=== PATIENT | female | born 1980 | race Caucasian/White ===

== ENCOUNTER 2017-02-07 12:20 | Emergency (ER) | payer BC ==
[~2017-02-07] VITALS: Ht 167.6 cm; Wt 89.8 kg
[~2017-02-07 12:20] MED LIST: CPROT OTR
[2017-02-07 12:34] VITALS: TEMP 36.7; Ht 167.6 cm; Wt 89.8 kg
[2017-02-07] MEDS ORDERED: B-COTAB53 PO (13:56)
[2017-02-07] MEDS ORDERED: FERR1TAB13 PO (13:56)
[2017-02-07] MEDS ORDERED: LISI-787 PO (13:56)
[2017-02-07] MEDS ORDERED: MAGN400T6 PO (13:56)
[2017-02-07] MEDS ORDERED: MULT-506 PO (13:56)
[2017-02-07 14:07] LABS: URINE APPEARANCE CLEAR (CLEAR); URINE BILIRUBIN NEG (NEG); URINE COLOR YELLOW; URINE EPITHELIAL CELL AUTO 0-5 /lpf (0-5); URINE NITRITE NEG (NEG); UROBILINOGEN NEG (NEG); ZZUR CULT IF INDIC CLEAN CATCH NO
[2017-02-07 14:10] LABS: MANUAL MICROSCOPIC REQUIRED? NO; REVIEW REQ? NO
[2017-02-07] MEDS ORDERED: OPTIRAY 320 IV PRN ×2 (14:15→15:30)
[2017-02-07 14:21] LABS: BASO % 0.2 %; BASO ABS # 0.01 K/uL (0-0.2); COMPLETE YES; EOS % 0.6 %; HEMATOCRIT 40.4 % (37-47); IG% 0.2 %; LYMPH % 25.3 %; LYMPH ABS # 1.37 K/uL (1.2-3.4); MEAN CELL VOLUME 82.1 fL (80-100); MEAN CORPUSCULAR HEMOGLOBIN 28.3 pg (25-34); MEAN CORPUSCULAR HGB CONC 34.4 g/dl (32-36); MEAN PLATELET VOLUME 10.3 fL (7.4-10.4); MONO % 8.7 %; PLATELET COUNT 271 K/uL (130-400); RED BLOOD COUNT 4.92 M/uL (4.2-5.4); WHITE BLOOD COUNT 5.41 K/uL (4.8-10.8)
--- NOTE | 2017-02-07 14:29 | DIAGNOSTIC IMAGING REPORT ---
CHEST ONE VIEW PORTABLE CLINICAL HISTORY: Dyspnea cough COMPARISON STUDY: 12/12/2014 FINDINGS: The bones soft tissues and hemidiaphragms are normal. The cardiomediastinal silhouette is normal. The lungs are clear. The pulmonary vasculature is normal. IMPRESSION: Negative chest. Electronically signed by: Horace Locke M.D. 02/07/2017 2:28 PM Dictated Date/Time: 02/07/2017 2:27 PM
[2017-02-07 14:36] LABS: ALT/SGPT 22 U/L (12-78); AST/SGOT 11 U/L (15-37); BLOOD UREA NITROGEN 15 mg/dl (7-18); BUN/CREATININE RATIO 18.9 (10-20); CARBON DIOXIDE 29 mmol/L (21-32); CHLORIDE 101 mmol/L (98-107); CREATININE 0.81 mg/dl (0.60-1.20); GLUCOSE 88 mg/dl (70-99); POTASSIUM 3.7 mmol/L (3.5-5.1); SODIUM 137 mmol/L (136-145)
[2017-02-07 14:41] LABS: ALB/GLOB RATIO 1.1 (0.9-2); ALKALINE PHOSPHATASE 93 U/L (45-117); AMYLASE 65 U/L (25-115)
--- NOTE | 2017-02-07 15:12 | DIAGNOSTIC IMAGING REPORT ---
ABDOMINAL ULTRASOUND, RIGHT UPPER QUADRANT HISTORY: RUQ pain, +[place] sign. COMPARISON: None. FINDINGS: Liver morphology is normal. No hepatic lesions are identified. There is no biliary ductal dilatation. The common bile duct measures 6 mm in caliber. No gallstones are identified. There is no gallbladder wall thickening. The pancreatic body is normal. The head and tail are partially obscured. There is no right hydronephrosis. IMPRESSION: No significant abnormality identified within the right upper quadrant. Electronically signed by: Tree Tellez M.D. 02/07/2017 3:11 PM Dictated Date/Time: 02/07/2017 3:10 PM
--- NOTE | 2017-02-07 16:14 | EMERGENCY ROOM VISIT NOTE ---
History First contact with patient: 13:39 Chief Complaint: ABDOMINAL PAIN Stated Complaint: UPPER RT QUAD PAIN/DULL, NAUSEA, WEIGHT LOSS Nursing Triage Summary: Pt report RUQ pain x 9 mos, CT done and pt is "being monitored". N/V/D. Pain is worse. History of Present Illness The patient is a 36 year old female who presents to the Emergency Room via private vehicle accompanied by daughter with complaints of "upper right quadrant pain/dull, nausea, weight loss". The patient states that she's been experiencing right upper quadrant pain for the past 9 months, and believe she had a CT performed, however after discussing this with her she believes she may only had endoscope/colonoscopy. She states for the past 9 months the pain has been in the right upper quadrant, it feels the same and at times it would go away and now it is persistent and ongoing. She states that she has found nothing [id number] or through her diet to provided her relief. She also feels like she is short of breath with exertion. She notes that she does exercise a lot, and with running she becomes nauseous and vomited secondary to the pain in the right upper quadrant. She also states that she has lost 40 pounds since September. She can attribute some of this to exercise, but believes that some of that is unexplained. She additionally notes that she had brain surgery performed 3 years ago. Review of Systems A complete 10-point Review of Systems was discussed with the patient, with pertinent positives and negatives listed in the History of Present Illness. All remaining Review of Systems questions can be considered negative unless otherwise specified. Past Medical/Surgical History Medical Problems: (1) Asthma Surgical Problems: (1) section (2) Laparoscopy (3) Vestibular schwannoma (4) [place] Teeth Removal Family History Patient reports no known family medical history. Diabetes, heart disease, high blood pressure, cancer, lung disease, gallbladder disease, kidney disease or stones, brain tumor Social History Smoking Status: Never Smoker Alcohol Use: none Drug Use: none Marital Status: Housing Status: lives with significant other Occupation Status: employed Current/Historical Medications Scheduled B-Complex W/ Folic Acid (B Complex), 1 TAB PO DAILY Ferrous Sulfate (Kp Ferrous Sulfate), 1 TAB PO DAILY Lisinopril/Hctz (Zestoretic 20MG/12.5MG), 1 TAB PO DAILY Magnesium Oxide (Mag-Ox), 400 MG PO DAILY Multivitamin (Multivitamin), 1 TAB PO DAILY Allergies Coded Allergies: Gluten (Unverified Allergy, Unknown, PER PT, 02/07/17) Sulfa Drugs (Unverified Allergy, Unknown, ?, 02/07/17) Physical Exam Vital Signs Date Time Temp Pulse Resp B/P Pulse Ox O2 Delivery O2 Flow Rate FiO2 02/07/17 17:31 94 02/07/17 17:05 96 18 152/97 100 Room Air 02/07/17 14:18 90 18 146/106 100 Room Air 02/07/17 12:34 36.7 102 18 157/91 99 Room Air Physical Exam VITAL SIGNS - Vital signs and nursing notes were reviewed. Patient is afebrile , slightly hypertensive at 157/91, tachycardic at a rate of 102 bpm, and is saturating well on room air 99%. GENERAL -36-year-old female appearing her stated age who is in no acute distress. Communicates well with provider and answers questions appropriately. SKIN - Without rashes. No petechial rashes. HEAD - NC/AT. EYES - Sclera anicteric. Palpebral conjunctiva pink and moist with no injection noted. EARS - No deformities of external structures noted on gross examination bilaterally. NOSE - Midline and without cyanosis. No epistaxis or purulent drainage noted. MOUTH/OROPHARYNX - Without perioral cyanosis. Buccal mucosa pink and moist and without leukoplakia. LUNGS - Chest wall symmetric without accessory muscle use, intercostals retractions, or central cyanosis. Normal vesicular breath sounds CTA B/L. No wheezes, rales, or rhonchi appreciated. CARDIAC - RRR with S1/S2. No murmur, rubs, or gallops appreciated. ABDOMEN - Abdominal contour without pulsations or visible masses. BS normoactive all four quadrants. There is tenderness to palpation of the right upper quadrant. No palpable masses, hepatosplenomegaly, or ascites noted. EXTREMITIES - No clubbing or peripheral cyanosis. No pretibial edema present. +5 /5 strength noted in UE/LE bilaterally. Medical Decision & Procedures ER Provider Diagnostic Interpretation: CT ANGIOGRAM OF THE CHEST CLINICAL HISTORY: Dyspnea. Tachycardia. COMPARISON STUDY: Chest x-ray dated 02/07/2017. TECHNIQUE: Following the IV administration of 116 cc of Optiray 320, CT angiogram of the chest was performed from the upper abdomen to the thoracic inlet utilizing the pulmonary embolus protocol. Images are reviewed in the axial, sagittal, and coronal planes. 3-D MIPS images are created and assessed. IV contrast was administered without complication. CT DOSE: 1060.09 mGy.cm FINDINGS: Thyroid: Imaged portions of the thyroid gland are normal in size and attenuation. Thoracic aorta: The thoracic aorta is normal in caliber and demonstrates standard 3-vessel arch anatomy. No dissection is seen. Pulmonary vasculature: The pulmonary trunk is normal in caliber. There are no filling defects identified in main, lobar, or segmental pulmonary branches to suggest pulmonary embolus. Heart: The heart is normal in size and configuration, and without pericardial effusion. Lungs and pleural spaces: A small calcified granulomas noted in the left lower lobe. The lungs and pleural spaces are otherwise clear. The trachea and central airways are patent. Mediastinum: There is no mediastinal lymphadenopathy. Ramila: Clear. Axillae: There is no axillary lymphadenopathy. Upper abdomen: Partially visualized upper abdominal viscera is within normal limits. Skeletal structures: No lytic or blastic bony lesions are seen. Soft tissues: There are bilateral breast implants. IMPRESSION: 1. There is no evidence of pulmonary embolus in the main, lobar, or segmental pulmonary arteries. 2. The lungs are clear. Electronically signed by: Rl Del Castillo M.D. 02/07/2017 5:05 PM Dictated Date/Time: 02/07/2017 5:02 PM ABDOMEN AND PELVIS CT WITH IV AND ORAL CONTRAST CT DOSE: HISTORY: Right upper quadrant abdominal pain. TECHNIQUE: Multiaxial CT images of the abdomen and pelvis were performed following the use of intravenous and oral contrast. COMPARISON STUDY: Abdominal ultrasound 02/07/2017. FINDINGS: The lung bases are clear. The liver, spleen, gallbladder, pancreas, kidneys, and adrenal glands are within normal limits. No bowel wall thickening or obstruction. The pelvic organs are unremarkable. No suspicious lytic or blastic osseous lesions. Bilateral breast augmentation. Normal appendix. There is a single sigmoid diverticulum. IMPRESSION: No significant abnormality identified within the abdomen or pelvis. No bowel wall thickening or obstruction. Normal appendix. Electronically signed by: Jer Jimenez M.D. 02/07/2017 5:08 PM CHEST ONE VIEW PORTABLE CLINICAL HISTORY: Dyspnea cough COMPARISON STUDY: 12/12/2014 FINDINGS: The bones soft tissues and hemidiaphragms are normal. The cardiomediastinal silhouette is normal. The lungs are clear. The pulmonary vasculature is normal. IMPRESSION: Negative chest. Electronically signed by: Horace Locke M.D. 02/07/2017 2:28 PM Dictated Date/Time: 02/07/2017 2:27 PM ABDOMINAL ULTRASOUND, RIGHT UPPER QUADRANT HISTORY: RUQ pain, +[place] sign. COMPARISON: None. FINDINGS: Liver morphology is normal. No hepatic lesions are identified. There is no biliary ductal dilatation. The common bile duct measures 6 mm in caliber. No gallstones are identified. There is no gallbladder wall thickening. The pancreatic body is normal. The head and tail are partially obscured. There is no right hydronephrosis. IMPRESSION: No significant abnormality identified within the right upper quadrant. Electronically signed by: Tree Tellez M.D. 02/07/2017 3:11 PM Dictated Date/Time: 02/07/2017 3:10 PM Laboratory Results 02/07/17 14:07 Red Blood Count 4.92, Mean Corpuscular Volume 82.1, Mean Corpuscular Hemoglobin 28.3, Mean Corpuscular Hemoglobin Concent 34.4, Mean Platelet Volume 10.3, Neutrophils (%) (Auto) 65.0, Lymphocytes (%) (Auto) 25.3, Monocytes (%) (Auto) 8.7, Eosinophils (%) (Auto) 0.6, Basophils (%) (Auto) 0.2, Neutrophils # (Auto) 3.52, Lymphocytes # (Auto) 1.37, Monocytes # (Auto) 0.47, Eosinophils # (Auto) 0.03, Basophils # (Auto) 0.01 02/07/17 14:07 Test 02/07/17 13:48 02/07/17 13:56 02/07/17 14:07 02/07/17 14:19 Urine Color YELLOW Urine Appearance CLEAR (CLEAR) Urine pH 5.0 (4.5-7.5) Urine Specific [place] 1.000 (1.000-1.030) Urine Protein NEG (NEG) Urine Glucose (UA) NEG (NEG) Urine Ketones NEG (NEG) Urine Occult Blood 2+ (NEG) Urine Nitrite NEG (NEG) Urine Bilirubin NEG (NEG) Urine Urobilinogen NEG (NEG) Urine Leukocyte Esterase NEG (NEG) Urine WBC (Auto) 0 /hpf (0-5) Urine RBC (Auto) 0-4 /hpf (0-4) Urine Hyaline Casts (Auto) 0 /lpf (0-5) Urine Epithelial Cells (Auto) 0-5 /lpf (0-5) Urine Bacteria (Auto) NEG (NEG) White Blood Count 5.41 K/uL (4.8-10.8) Red Blood Count 4.92 M/uL (4.2-5.4) Hemoglobin 13.9 g/dL (12.0-16.0) Hematocrit 40.4 % (37-47) Mean Corpuscular Volume 82.1 fL (80-100) Mean Corpuscular Hemoglobin 28.3 pg (25-34) Mean Corpuscular Hemoglobin Concent 34.4 g/dl (32-36) Platelet Count 271 K/uL (130-400) Mean Platelet Volume 10.3 fL (7.4-10.4) Neutrophils (%) (Auto) 65.0 % Lymphocytes (%) (Auto) 25.3 % Monocytes (%) (Auto) 8.7 % Eosinophils (%) (Auto) 0.6 % Basophils (%) (Auto) 0.2 % Neutrophils # (Auto) 3.52 K/uL (1.4-6.5) Lymphocytes # (Auto) 1.37 K/uL (1.2-3.4) Monocytes # (Auto) 0.47 K/uL (0.11-0.59) Eosinophils # (Auto) 0.03 K/uL (0-0.5) Basophils # (Auto) 0.01 K/uL (0-0.2) RDW Standard Deviation 46.6 fL (36.4-46.3) RDW Coefficient of Variation 15.5 % (11.5-14.5) Immature Granulocyte % (Auto) 0.2 % Immature Granulocyte # (Auto) 0.01 K/uL (0.00-0.02) D-Dimer 550 ug/L FEU (0-500) Anion Gap 7.0 mmol/L (3-11) Est Creatinine Clear Calc Drug Dose 106.3 ml/min Estimated GFR () 106.8 Estimated GFR (Non- 92.1 BUN/Creatinine Ratio 18.9 (10-20) Calcium Level 9.0 mg/dl (8.5-10.1) Total Bilirubin 0.3 mg/dl (0.2-1) Aspartate Amino Transf (AST/SGOT) 11 U/L (15-37) Alanine Aminotransferase (ALT/SGPT) 22 U/L (12-78) Alkaline Phosphatase 93 U/L (45-117) Troponin I < 0.015 ng/ml (0-0.045) Total Protein 8.0 gm/dl (6.4-8.2) Albumin 4.1 gm/dl (3.4-5.0) Globulin 3.9 gm/dl (2.5-4.0) Albumin/Globulin Ratio 1.1 (0.9-2) Amylase Level 65 U/L (25-115) Lipase 163 U/L (73-393) Bedside D-Dimer > 450 ng/mlFEU (0-450) Bedside Troponin I 0.000 ng/ml (0-0.045) Medical Decision Patient was seen and evaluated as above. After obtaining a thorough history and physical examination IV access was initiated and the above workup was performed. The patient presents with right upper quadrant pain as well as shortness of breath on exertion and weight loss. The patient was tachycardic here, did have a recent injury to the leg with calf pain which has now diminished but she does have the shortness of breath on exertion which is also concerning. The above workup did include a point care d-dimer which was found to be elevated. Chest x-ray was unremarkable. Gallbladder ultrasound was also unremarkable, and a CT scan of the abdomen and pelvis with benefits versus risk was discussed with the patient and the decision to scan was made. The CT was performed of the chest, abdomen and pelvis. CTA reveals no pulmonary emboli, it still findings were discussed with the patient. Abdomen and pelvis are essentially unremarkable for acute process. Patient was informed upon these findings. In review of the patient's blood work, CBC reveals no leukocytosis or anemia, point care d-dimer was elevated, regular d-dimer was elevated, electrolytes unremarkable, renal function unremarkable, AST and ALTs were not elevated, [id number] troponin negative, troponin negative, amylase and lipase were within normal limits. The above imaging did not reveal any acute process. I this time do not have an etiology or explanation for the patient's abdominal pain but do not believe it is emergent or surgical at this time in nature. Patient was informed upon this and did seem happy with plan of care. She was instructed to follow-up with her family doctor for further evaluation and management, she notes that her appointment is this coming week. I do believe this is appropriate, and she was invited to return for any new/ concerning symptoms. She was educated upon management of today's findings, had questions prior to discharge, and was discharged home in good condition. The MIKEY screen was ordered at the patient's request. She is to call back to the emergency department for results. EKG reveals a normal sinus rhythm, rate of 81 bpm, no ectopy or ischemic change. When compared with most previous EKG, no significant change was found. Impression Primary Impression: Right upper quadrant abdominal pain Additional Impression: Shortness of breath on exertion Departure Information Dispostion Home / Self-Care Condition GOOD Referrals Faye Aguayo D.O. (PCP) Patient Instructions [facility] Additional Instructions You have been treated in the Emergency Department your Abdominal Pain. Laboratory results and imaging studies have ruled out any emergent causes for your abdominal pain which would warrant admission or surgery. For pain control, you can use the following [id number] medicines (if >12 yo): - Regular strength (325mg/tab) Tylenol (acetaminophen) 2 tabs every 4-6 hours as needed. Do not exceed 12 tablets in a 24 hour period. Avoid taking more than 4 grams (4000 mg) of Tylenol per day. This includes any other sources of acetaminophen you may take on a regular basis. - Regular strength (200 mg/tab) Advil (ibuprofen) 1-2 tabs every 4-6 hours as needed. Do not exceed a dose of 3200 mg per day. Drink plenty of water and stay well hydrated. As with any trip to the Emergency Department, you should follow-up with your Primary Care Provider from today's visit. Please keep your scheduled appointment. Return to the emergency department if your symptoms persist despite treatment plan outlined above or if the following symptoms occur: increased fevers, chills , worsening nausea/vomiting, blood in your stool or urine. Please return to emergency department with any new/concerning symptoms. Problem Qualifiers
[2017-02-07 17:05] VITALS: BP 152/97; O2SAT 100
--- NOTE | 2017-02-07 17:06 | DIAGNOSTIC IMAGING REPORT ---
CT ANGIOGRAM OF THE CHEST CLINICAL HISTORY: Dyspnea. Tachycardia. COMPARISON STUDY: Chest x-ray dated 02/07/2017. TECHNIQUE: Following the IV administration of 116 cc of Optiray 320, CT angiogram of the chest was performed from the upper abdomen to the thoracic inlet utilizing the pulmonary embolus protocol. Images are reviewed in the axial, sagittal, and coronal planes. 3-D MIPS images are created and assessed. IV contrast was administered without complication. CT DOSE: 1060.09 mGy.cm FINDINGS: Thyroid: Imaged portions of the thyroid gland are normal in size and attenuation. Thoracic aorta: The thoracic aorta is normal in caliber and demonstrates standard 3-vessel arch anatomy. No dissection is seen. Pulmonary vasculature: The pulmonary trunk is normal in caliber. There are no filling defects identified in main, lobar, or segmental pulmonary branches to suggest pulmonary embolus. Heart: The heart is normal in size and configuration, and without pericardial effusion. Lungs and pleural spaces: A small calcified granulomas noted in the left lower lobe. The lungs and pleural spaces are otherwise clear. The trachea and central airways are patent. Mediastinum: There is no mediastinal lymphadenopathy. Ramila: Clear. Axillae: There is no axillary lymphadenopathy. Upper abdomen: Partially visualized upper abdominal viscera is within normal limits. Skeletal structures: No lytic or blastic bony lesions are seen. Soft tissues: There are bilateral breast implants. IMPRESSION: 1. There is no evidence of pulmonary embolus in the main, lobar, or segmental pulmonary arteries. 2. The lungs are clear. Electronically signed by: Rl Del Castillo M.D. 02/07/2017 5:05 PM Dictated Date/Time: 02/07/2017 5:02 PM
--- NOTE | 2017-02-07 17:10 | DIAGNOSTIC IMAGING REPORT ---
ABDOMEN AND PELVIS CT WITH IV AND ORAL CONTRAST CT DOSE: HISTORY: Right upper quadrant abdominal pain. TECHNIQUE: Multiaxial CT images of the abdomen and pelvis were performed following the use of intravenous and oral contrast. COMPARISON STUDY: Abdominal ultrasound 02/07/2017. FINDINGS: The lung bases are clear. The liver, spleen, gallbladder, pancreas, kidneys, and adrenal glands are within normal limits. No bowel wall thickening or obstruction. The pelvic organs are unremarkable. No suspicious lytic or blastic osseous lesions. Bilateral breast augmentation. Normal appendix. There is a single sigmoid diverticulum. IMPRESSION: No significant abnormality identified within the abdomen or pelvis. No bowel wall thickening or obstruction. Normal appendix. Electronically signed by: Jer Jimenez M.D. 02/07/2017 5:08 PM Dictated Date/Time: 02/07/2017 5:02 PM
[2017-02-07 17:31] VITALS: PULSE 94
[2017-02-07] MEDS ORDERED: AMOXICILLIN/CLAVULANATE TAB 875 MG TAB PO STA (18:02)
== END 2017-02-07 18:07 | disposition home or self-care (01) ==
LOC: C.EDB 12:21 → C.EDC 18:07
DX: R10.11 Right upper quadrant pain (principal); R06.02 Shortness of breath; J45.909 Unspecified asthma, uncomplicated; Z79.899 Other long term (current) drug therapy; Z88.2 Allergy status to sulfonamides; Z91.018 Allergy to other foods; Z83.3 Family history of diabetes mellitus; Z82.49 Family history of ischemic heart disease and other diseases of the circulatory system; Z80.9 Family history of malignant neoplasm, unspecified; Z83.79 Family history of other diseases of the digestive system; Z84.1 Family history of disorders of kidney and ureter

== ENCOUNTER → 2017-09-18 | Outpatient (CLI) | payer BC ==
[~2017-09-18] MED LIST changes: +B-COTAB53 PO; -CPROT OTR; +FERR1TAB13 PO; +LISI-787 PO; +MAGN400T6 PO; +MULT-506 PO
[2017-09-18 17:26] LABS: BASO % 0.4 %; BASO ABS # 0.02 K/uL (0-0.2); COMPLETE YES; EOS % 0.7 %; HEMATOCRIT 37.6 % (37-47); IG% 0.2 %; LYMPH % 33.6 %; LYMPH ABS # 1.91 K/uL (1.2-3.4); MEAN CELL VOLUME 83.2 fL (80-100); MEAN CORPUSCULAR HEMOGLOBIN 28.5 pg (25-34); MEAN CORPUSCULAR HGB CONC 34.3 g/dl (32-36); MEAN PLATELET VOLUME 9.9 fL (7.4-10.4); MONO % 8.6 %; NEUT % 56.5 %; PLATELET COUNT 278 K/uL (130-400); RED BLOOD COUNT 4.52 M/uL (4.2-5.4); WHITE BLOOD COUNT 5.68 K/uL (4.8-10.8)
== END | disposition home or self-care (01) ==
LOC: C.LAB1850 16:10
PROVIDERS: ATTEND Obstetrics & Gynecology
DX: N92.0 Excessive and frequent menstruation with regular cycle (principal)

== ENCOUNTER → 2017-10-22 | Outpatient (CLI) | payer BC | END | disposition home or self-care (01) | LOC: C.PAPS 11:16 | PROVIDERS: ATTEND Physician Assistant | DX: Z01.419 Encounter for gynecological examination (general) (routine) without abnormal findings (principal) ==

== ENCOUNTER 2019-06-29 08:00 | Observation (INO) ==
--- NOTE | 2019-06-19 09:39 | PAT Medication Instructions ---
Medication Instructions Date of Service June 19, 2019 Home Medications ergocalciferol (vitamin D2) [Vitamin D2] 50,000 unit PO WK folic acid 1 mg PO Daily lisinopril-hydrochlorothiazide 1 tab PO QAM methocarbamol 750 mg PO BID NEEDED methotrexate sodium 12.5 mg PO Saturday vitamin B complex 1 tab PO QAM Continue as directed ergocalciferol (vitamin D2) [Vitamin D2] 50,000 unit PO WK ASK your prescriber and surgeon methotrexate sodium 12.5 mg PO Saturday DO NOT take the morning of surgery folic acid 1 mg PO Daily lisinopril-hydrochlorothiazide 1 tab PO QAM methocarbamol 750 mg PO BID NEEDED vitamin B complex 1 tab PO QAM Take morning of surgery NOTHING TO EAT OR DRINK AFTER MIDNIGHT: Take evening before surgery methocarbamol 750 mg PO BID NEEDED (if needed) Other Notes If you have any questions please call us at [phone] or [phone] or [phone] or [phone]
--- NOTE | 2019-06-19 09:42 | Anesthesiology Consultation ---
Date of Service June 19, 2019 Assessment & Plan (1) Encounter for pre-operative examination: - No previous anesthesia records re: intubation. Chart Review Chart Review: Patient seen in Pre Admission Testing Consults Requested none Teaching & Discussion Pre-Anesthesia Teaching/Discussion Notes: Instructed NPO after midnight before surgery, except medications with 15 cc of water. Medication instructions provided according to the PAT guidelines. History Surgery Operation Date: 06/29/19 09:20 Proposed Procedures p Robotic Total Laparoscopic Hysterectomy - Hilary Clark MD Height/Weight Height: 5 ft 6.5 in Weight: 95.6 kg Allergies Allergy/AdvReac Type Severity Reaction Status Date / Time gluten Allergy Unknown PER PT Unverified 06/17/19 11:55 Sulfa (Sulfonamide Allergy Unknown Rash Unverified 06/17/19 11:55 Antibiotics) Medications Home Medications Medication Instructions Recorded Confirmed Last Taken ergocalciferol (vitamin D2) 50,000 unit PO WK 06/17/19 06/17/19 Unknown [Vitamin D2] folic acid 1 mg PO UD 06/17/19 06/17/19 Unknown lisinopril-hydrochlorothiazide 1 tab PO QAM 06/17/19 06/17/19 Unknown methocarbamol 750 mg PO BID PRN 06/17/19 06/17/19 Unknown methotrexate sodium 12.5 mg PO WK 06/17/19 06/17/19 Unknown vitamin B complex 1 tab PO QAM 06/17/19 06/17/19 Unknown Past Medical History Medical History GERD (gastroesophageal reflux disease) Hard of hearing left ear History of benign brain tumor s/p excision - [facility] 2013 - hardware present History of ectopic History of migraine headaches Hypertension Multiple thyroid nodules Non-alcoholic fatty liver disease Right bundle branch block Sjogren's disease Follows with Dr. Willingham Thickened endometrium Exercise / Class Metabolic Activity II 4-5 Yardwork/Stairs/Walk up hill (Goes to gym 5 days a week for strength training and 3-4 times per week for cardio. Able to climb FOS. Denies CP. Does get SOB when having problems with Sjogren's. ) Past Family History Family History Father Family history of diabetes mellitus Aunt Family hx of colon cancer Mother Family hx colonic polyps Past Surgical History Surgical History History of section x 2 History of colonoscopy w/ polypectomy History of esophagogastroduodenoscopy (EGD) History of hysteroscopy w/ endometrial biopsy History of laparoscopy History of surgery D&E - 10/01/14: LMA #4 History of wisdom tooth extraction Past Anesthesia History No Hx of Anesthesia Complications and No Family Hx of Anesthesia Complications History of PONV No Hx of PONV and Hx of Motion Sickness (With vestibular issues) Social History Smoking Status: Never smoker Do You Dip or Chew Tobacco: No Hx Alcohol Use: No Hx Substance Use: No substance use type: does not use Review of Systems Patient denies chest pain, shortness of breath, dyspnea on exertion, cough, wheezing, palpitations. +Joint Pain (Neck, "All over") +Acid Reflux (Diet controlled) +Heart Palpitations (Rarely) Physical Exam Vital Signs BP: 119/74 P: 74 R: 16 T: 98.1 SPO2: 100% on RA Constitutional + obese ENMT Thyromental Distance: > or= 3.5 Finger Breadths (4) Mallampati Class: I Neck normal visual inspection and trachea midline; neck extension not limited Respiratory normal respiratory effort Auscultation: lungs clear to auscultation bilaterally Cardiovascular Rate/Rhythm: regular rate and regular rhythm Heart Sounds: no murmur Neurologic moves all extremities Psychiatric Orientation: alert and oriented x 3 Testing Laboratory Results 06/19/19 10:05 06/19/19 10:05 Blood Type O Positive 06/19/19 10:05 Antibody Screen NEGATIVE 06/19/19 10:05
[2019-06-19 11:40] LABS: Basophils # (auto) 0.01 K/uL (0-0.2); Basophils % (auto) 0.2 %; Eosinophils # (auto) 0.03 K/uL (0-0.5); Eosinophils % (auto) 0.7 %; Hematocrit (blood only) 39.7 % (37-47); Hemoglobin 13.5 g/dL (12.0-16.0); Immature Granulocytes # (auto) 0.01 K/uL (0.00-0.02); Immature Granulocytes % (auto) 0.2 %; Lymphocytes # (auto) 1.27 K/uL (1.2-3.4); Lymphocytes % (auto) 29.9 %; Mean Corpuscular Volume 86.9 fL (80-100); Mean Platelet Volume 10.3 fL (7.4-10.4); Monocytes # (auto) 0.37 K/uL (0.11-0.59); Monocytes % (auto) 8.7 %; Neutrophils # (auto) 2.56 K/uL (1.4-6.5); Neutrophils % (auto) 60.3 %; Platelet Count 273 K/uL (130-400); RDW Coefficient of Variation 13.5 % (11.5-14.5); RDW Standard Deviation 42.6 fL (36.4-46.3); Red Blood Count 4.57 M/uL (4.2-5.4); White Blood Count 4.25 K/uL (4.8-10.8)
[2019-06-19 12:00] LABS: BUN Creatinine Ratio 16.4 (10-20); Calcium 9.1 mg/dl (8.5-10.1); Creatinine Clr Calc Pharmacy 96.8 ml/min; Est GFR (Non-African American) 79.4
[~2019-06-29 08:00] MED LIST changes: -B-COTAB53 PO; +CEFAZOLIN 2000MG 2,000 MG/15 ML SYR IV SCH; -FERR1TAB13 PO; -LISI-787 PO; +LR 15ML/HR IV SCH; -MAGN400T6 PO; -MULT-506 PO
[2019-06-29] MEDS ORDERED: GLYCOPYRROLATE 0.2 MG/ML VIAL ONE (08:25)
[2019-06-29] MEDS ORDERED: fentaNYL citrate 100 MCG/2 ML VIAL ONE ×2 (08:25)
[2019-06-29] MEDS ORDERED: ONDANSETRON INJ 2 MG/ML 2 ML VIAL ONE (08:25)
[2019-06-29] MEDS ORDERED: DEXAMETHASONE SOD INJ 4 MG/ML VIAL ONE (08:25)
[2019-06-29] MEDS ORDERED: NEOSTIGMINE METHYLSULFATE 5 MG/5 ML SYR ONE (08:25)
[2019-06-29] MEDS ORDERED: LIDOCAINE HCL 2% 2 ML VIAL/AMP(20MG/ML) INFIL ONE (08:25)
[2019-06-29] MEDS ORDERED: PROPOFOL IV EMULSION 10 MG/ML 20 ML VIAL IV ONE (08:25)
[2019-06-29] MEDS ORDERED: MIDAZOLAM HCL 1 MG/ML 2ML VIAL ONE (08:25)
[2019-06-29] MEDS ORDERED: ATROPINE SULFATE 0.1 MG/ML 10ML SYR IV PRN (09:07)
[2019-06-29] MEDS ORDERED: PROMETHAZINE HCL 12.5 MG in SODIUM CHLORIDE 0.9% 50 ML IV PRN ×2 (09:07→09:27)
[2019-06-29] MEDS ORDERED: ONDANSETRON INJ 2 MG/ML 2 ML VIAL IV PRN ×2 (09:07→09:27)
[2019-06-29] MEDS ORDERED: LABETALOL HCL IV 5 MG/ML 20ML IV PRN (09:07)
[2019-06-29] MEDS ORDERED: KETOROLAC 30 MG/ML VIAL IV PRN (09:07)
[2019-06-29] MEDS ORDERED: METHYLENE BLUE 0.5% 10 ML VIAL ONE (09:13)
--- NOTE | 2019-06-29 09:19 | History & Physical Bridge Note ---
Date of Service June 29, 2019 History & Physical Bridge Note I have examined the patient, reviewed the History & Physical and in the interval since the performance of the History & Physical I have noted the following changes of clinical significance: no changes noted
[2019-06-29] MEDS ORDERED: SIMETHICONE 80 MG CHEW PO PRN (09:27)
[2019-06-29] MEDS ORDERED: OXYCODONE/ACETAMINOPHEN 5mg/325mg TAB PO PRN ×2 (09:27)
[2019-06-29] MEDS ORDERED: PROMETHAZINE HCL 25 MG in SODIUM CHLORIDE 0.9% 50 ML IV PRN (09:27)
[2019-06-29] MEDS ORDERED: MEPERIDINE HCL 50 MG/ML CARP IV PRN (09:27)
[2019-06-29] MEDS ORDERED: MEPERIDINE HCL 25 MG/ML CARP IV PRN (09:27)
[2019-06-29] MEDS ORDERED: ACETAMINOPHEN 325 MG TAB PO PRN (09:27)
[2019-06-29] MEDS ORDERED: LACTATED RINGER'S 1,000 ML IV SCH (09:30)
[2019-06-29] MEDS ORDERED: LARYING-O-JET KIT (LTA) ONE (10:44)
[2019-06-29] MEDS ORDERED: ROCURONIUM BROMIDE 10 MG/ML 5 ML VIAL ONE (10:45)
--- NOTE | 2019-06-29 11:04 | Operative Report ---
Post Operative Report Pre & Post Diagnosis Operation Date: 06/29/19 09:20 Pre-Op Diagnosis: Menorrhagia with Irregular Cycle, unable to tolerate Mirena Post-Op Diagnosis: Menorrhagia with Irregular Cycle, unable to tolerate Mirena Procedure Operation Date: 06/29/19 09:20 Actual Procedures p Robotic Total Laparoscopic Hysterectomy and bilateral salpingectomy, cystoscopy - Hilary Clark MD Surgeon Hilary Clark MD Control Clerk Head None Estimated Blood Loss 25 Findings Consistent with Post-Op Diagnosis Specimens Uterus, Fallopian Tubes, Cervix Anesthesia Type General Complications none Disposition Accompanied Patient To Recovery: Yes Disposition: Recovery Room Description of Procedure The patient was brought to the operating room and placed on the table in dorsal lithotomy position with yellofin stirrups, prepped and draped in standard sterile fashion, and a hard time out was taken prior to proceeding. The bladder was emptied via placement of mckinley catheter. A [employer] uterine manipulator was placed in the usual manner. Attention was then turned to the abdomen where optical entry was made at the umbilicus without complication. The abdomen was insufflated and the patient was placed in steep Trendelenburg. Under direct visualization, right and left lower quadrant ports were placed without complication. Survey of the abdomen revealed Normal appearing ovaries and tubes bilaterally, normal abdominal survey, some adhesive disease. The robot was then docked and surgery proceeded with the surgeon at the console. The ureter was identified on each side and traced along its course into the pelvis. Each fal lopian tube in turn was elevated, dissected off the mesosalpinx and left attached to the uterine cornu. Each utero-ovarian ligament was ligated and then divided. Each round ligament was ligated and then divided. The anterior leaflets of the broad ligament were dissected to create a bladder flap which was gently mobilized downward below the colpotomy cup ridge. Each uterine artery was skeletonized, ligated, and then divided. Circumferential colpotomy was then completed following the colpotomy cup guide. The cervix, uterus and bilateral tubes were then retrieved en bloc via the vagina. The vaginal cuff was then closed using V-Derrek suture in the typical running non-locked fashion. The needle was retrieved through a trocar, and suction/irrigation was then used to remove any debris and ensure good hemostasis at all working sites. After administration of IV Methylene Blue dye, cystoscopy was then utilized to examine the bladder dome which was free of suture or injury. The ureteral orifices were observed until a good strong jet of blue stained urine was seen from each. The bladder was then drained. The robot was then undocked, and abdominal trocar sites were closed using a UR6 at the umbilical fascia and 4-0 monocryl at each of the skin incisions. A dermabond dressing was applied to each site. A final vaginal exam ensured no materials were present in the vagina and the cuff was intact. The patient was then transferred in stable condition to the recovery room. I attest to the content of the Intraoperative Record and any orders documented therein. Any exceptions are noted below.
[2019-06-29] MEDS: HYDROmorphone INJ 1 MG/ML SYRINGE IV PRN ×2 (11:41→11:56)
--- NOTE | 2019-06-29 12:10 | Anesthesiology Progress Note ---
Date of Service June 29, 2019 Anesthesia Post Procedure Vital Signs Vital Signs: Temp Pulse Pulse Resp BP Pulse Ox 06/29/19 12:00 57 L 15 106/64 94 06/29/19 11:50 56 L 20 103/67 94 06/29/19 11:40 52 L 18 104/65 98 06/29/19 11:30 54 L 19 109/67 99 06/29/19 11:20 52 L 18 102/67 98 06/29/19 11:14 37.0 C 64 23 103/69 99 06/29/19 08:51 37 C 94 H 20 144/108 H 98 Pain Intensity Medial Abdomen: Pain Intensity: 4 Transfer of Care Handoff Completed per policy Notes Mental Status: alert / awake / arousable Patient Amnestic to Procedure: Yes Nausea / Vomiting: adequately controlled Pain: adequately controlled Airway Patency, RR, SpO2: stable & adequate BP & HR: stable & adequate Hydration State: stable & adequate Anesthetic Complications: no major complications apparent
[2019-06-29 16:57] LABS: Hematocrit (blood only) 36.6 % (37-47); Hemoglobin 12.3 g/dL (12.0-16.0)
[2019-06-29] MEDS ORDERED: DOCUSATE SODIUM 100 MG CAP PO SCH (21:00)
--- NOTE | 2019-07-01 07:30 | Discharge Summary ---
Date of Service July 01, 2019 Discharge Data Procedures Performed Operation Date: 06/29/19 09:20 Actual Procedures p Robotic Total Laparoscopic Hysterectomy and bilateral salpingectomy, - Hilary Clark MD s Cystoscopy - Hilary Clark MD Hospital Course (1) Menorrhagia with irregular cycle: Patient underwent uncomplicated laparoscopic hysterectomy, with findings of likely adenomyosis. She had an uneventful recovery and was discharged on POD#0 with usual #20 percocet and plans for f/u in 2 and 6 weeks.
== END 2019-06-29 17:50 | disposition home or self-care (01) ==
LOC: ASU 08:00 → 4N 08:00